=== PATIENT | female | born 1965 | race Caucasian/White ===

== ENCOUNTER 2023-01-23 04:06 | Day surgery (SDC) | payer OTHER ==
[2023-01-18 17:31] VITALS: BMI 33.6
[2023-01-23 06:50] VITALS: RESP 18
[2023-01-23] MEDS ORDERED: PROPOFOL 20 ML ONE (07:27)
[2023-01-23] MEDS ORDERED: MIDAZOLAM HCL 2 MG/2 ML SINGLE DOSE VIAL ONE (07:27)
[2023-01-23] MEDS ORDERED: LIDOCAINE HCL/PF 2% SDV 5ML VIAL ONE (07:28)
[2023-01-23] MEDS ORDERED: SODIUM CHLORIDE 0.9% P/F 10 ML VIAL IJ ONE (07:28)
[2023-01-23] MEDS ORDERED: ceFAZolin SODIUM 1 GM VIAL ONE (07:28)
[2023-01-23] MEDS ORDERED: KETOROLAC TROMETHAMINE 30 MG/1 ML VIAL ONE (07:48)
[2023-01-23] MEDS ORDERED: oxyCODONE HCL 5 MG TABLET PO PRN (07:57)
[2023-01-23 09:40] VITALS: BP 123/61; PULSE 77; TEMP 97.1
== END 2023-01-23 10:00 | disposition home or self-care (01) ==
LOC: JASU-SURG 04:06
PROVIDERS: ATTEND Urology
PROC: 0TF4XZZ Fragmentation in Left Kidney Pelvis, External Approach (ICD-10-PCS; principal; 2023-01-23 07:30)
DX: N20.0 Calculus of kidney (principal)
CPT/HCPCS: 81025